=== PATIENT | male | born 1980 | race Caucasian/White ===

== ENCOUNTER 2022-10-09 11:36 | Emergency (ER) | payer MEDICAID ==
[~2022-10-09] VITALS: Ht 193 cm; Wt 93.0 kg
[2022-10-09 11:53] VITALS: BP_SYST 134
--- NOTE | 2022-10-09 12:09 | NUR ---
Patient triaged and placed in waiting room. VSS and patient appears in no acute distress at this time. Accompanied by STAFF, awaiting available bed, and DR. CHRISTA GALLAGHER notified of need for MSE.
--- NOTE | 2022-10-09 12:57 | NUR ---
Pt bib self from home. CC Back and neck pain. Pt is aaox3, bilateral hand grasps, pt has unsteady gait and weakness. Pt is 5/10 in pain in the lateral position; 10/10 any other position. Pt states was at work and fell 6-8 feet from a ladder. Pt continued work day and went to sleep with stiffness, awoke with back and neck pain.
--- NOTE | 2022-10-09 13:30 | NUR ---
Pain medication effective for tolerable relief.
[2022-10-09] MEDS ORDERED: MORPHINE 4 MG INJ. 4 MG/ML VIAL IVP ONE ×2 (14:15→16:00)
--- NOTE | 2022-10-09 14:20 | NUR ---
ER at bedside examining patient.
--- NOTE | 2022-10-09 14:30 | NUR ---
Pt to xray via gail.
--- NOTE | 2022-10-09 15:19 | NUR ---
Pt is on right lateral side without complaint. Pt states as long as I dont move from this position I can tolerate the pain.
[2022-10-09] MEDS ORDERED: IBUP-1971 PO (15:50)
[2022-10-09] MEDS ORDERED: HYDR-3921 PO (15:50)
--- NOTE | 2022-10-09 16:35 | NUR ---
Patient given written and verbal discharge instructions and verbalizes understanding. ER MD discussed with patient the results and treatment provided. Patient in stable condition. ID arm band removed. IV catheter removed intact and dressing applied, no active bleeding. Rx of HYDROCODONE AND IBUPROFEN given. Patient educated on pain management and to follow up with PMD. Opportunity for questions provided and answered. Medication side effect fact sheet provided.
[2022-10-09 16:37] VITALS: BP_SYST 134
== END 2022-10-09 16:35 | disposition home or self-care (01) ==
LOC: SED 11:36
DX: S32.020A Wedge compression fracture of second lumbar vertebra, initial encounter for closed fracture (principal); Z79.899 Other long term (current) drug therapy; W11.XXXA Fall on and from ladder, initial encounter; Y93.89 Activity, other specified; Y92.89 Other specified places as the place of occurrence of the external cause; Y99.8 Other external cause status
CPT/HCPCS: 99284; 72125; 96374; 72128; 72131; 72192; 96376; 76376; J2270

== ENCOUNTER 2022-10-18 18:59 | Emergency (ER) | payer MEDICAID ==
[~2022-10-18] VITALS: Ht 193 cm; Wt 93.0 kg
[~2022-10-18 18:59] MED LIST: HYDR-3921 PO; IBUP-1971 PO
[2022-10-18 19:10] VITALS: BP_SYST 125
[2022-10-18] MEDS ORDERED: MORPHINE 4 MG INJ. 4 MG/ML VIAL IM ONE (22:15)
[2022-10-18] MEDS ORDERED: KETOROLAC TROMETHAMINE 60 MG/2 ML VIAL IM ONE (22:15)
--- NOTE | 2022-10-18 22:18 | NUR ---
MD Mathur at bedside examining pt.
--- NOTE | 2022-10-18 22:25 | NUR ---
Pt taken to CT for imaging via w/c.
--- NOTE | 2022-10-18 23:04 | NUR ---
Patient back from CT accompanied by radiology.
--- NOTE | 2022-10-18 23:05 | NUR ---
Received report from RASHEEDA Liu; assuming care of patient at this time.
[2022-10-19] MEDS ORDERED: MORPHINE 4 MG INJ. 4 MG/ML VIAL IM ONE (00:30)
[2022-10-19 01:20] VITALS: BP_SYST 125
--- NOTE | 2022-10-19 01:20 | NUR ---
Patient resting comfortably in bed with side rails raised and safety precautions in place. Nad noted at this time.
--- NOTE | 2022-10-19 01:20 | NUR ---
Patient given written and verbal discharge instructions and verbalizes understanding. ER MD discussed with patient the results and treatment provided. Patient in stable condition. ID arm band removed. Patient educated on pain management and to follow up with PMD. Pain Scale 3/10. Opportunity for questions provided and answered. Patient A/Ox4, VSS, ambulatory, resp even and unlabored and in stable condition upon discharge.
== END 2022-10-19 01:20 | disposition home or self-care (01) ==
LOC: SED 18:59
DX: S33.5XXA Sprain of ligaments of lumbar spine, initial encounter (principal); Z79.899 Other long term (current) drug therapy; W18.2XXA Fall in (into) shower or empty bathtub, initial encounter; Y93.89 Activity, other specified; Y92.89 Other specified places as the place of occurrence of the external cause; Y99.8 Other external cause status
CPT/HCPCS: 99284; 72131; 76376; 96372 ×2; J1885; J2270 ×2

== ENCOUNTER 2023-01-11 12:35 | Emergency (ER) | payer OTHER, MEDICAID ==
[~2023-01-11] VITALS: Ht 193 cm; Wt 90.7 kg
[2023-01-11 12:35] VITALS: BP_SYST 145
--- NOTE | 2023-01-11 12:35 | NUR ---
BROUGHT BACK TO BED #4 AND TRIAGED. REPORT GIVEN TO REED
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
--- NOTE | 2023-01-11 12:50 | NUR ---
# 20 gauge angiocath placed to RAC. Use of asceptic technique. Opsite placed over site. Blood return noted. Flushed with 10 cc of normal saline. No evidence of infiltration noted. Patient tolerated well.
--- NOTE | 2023-01-11 13:03 | NUR ---
DR. BRITT AT BEDSIDE TO ASSESS PT.
[2023-01-11] MEDS ORDERED: MORPHINE 4 MG INJ. 4 MG/ML VIAL IVP ONE (13:30)
--- NOTE | 2023-01-11 13:34 | NUR ---
PT TAKEN TO CT SCAN AT THIS TIME.
--- NOTE | 2023-01-11 14:02 | NUR ---
DR. GILMAN STATED HE WILL ADD PT'S ADMISSION ORDERS. Addendum: 01/11/23 at 1403 by [email or web address] CHARTING IS ON WRONG PT.
--- NOTE | 2023-01-11 14:02 | NUR ---
DR. GILMAN AT BEDSIDE TO ASSESS PT.
[2023-01-11] MEDS ORDERED: IBUP-1971 PO (15:15)
[2023-01-11] MEDS ORDERED: HYDR-3917 PO (15:15)
[2023-01-11 15:26] VITALS: BP_SYST 145
--- NOTE | 2023-01-11 15:28 | NUR ---
Patient given written and verbal discharge instructions and verbalizes understanding. ER MD discussed with patient the results and treatment provided. Patient in stable condition. ID arm band removed. IV catheter removed intact and dressing applied, no active bleeding. Rx of NORCO AND MOTRIN given. Patient educated on pain management and to follow up with PMD. Pain Scale 0/10 Opportunity for questions provided and answered. Medication side effect fact sheet provided.
== END 2023-01-11 15:28 | disposition home or self-care (01) ==
LOC: SED 12:35
DX: S13.4XXA Sprain of ligaments of cervical spine, initial encounter (principal); S20.212A Contusion of left front wall of thorax, initial encounter; S09.90XA Unspecified injury of head, initial encounter; Z79.899 Other long term (current) drug therapy; V86.56XA Driver of dirt bike or motor/cross bike injured in nontraffic accident, initial encounter; Y93.89 Activity, other specified; Y92.89 Other specified places as the place of occurrence of the external cause; Y99.8 Other external cause status
CPT/HCPCS: 99285; 70450; 96374; 71250; 72125; 76376; J2270

== ENCOUNTER 2023-02-05 12:10 | Emergency (ER) | payer MEDICAID ==
[~2023-02-05] VITALS: Ht 193 cm; Wt 90.7 kg
[~2023-02-05 12:10] MED LIST changes: +HYDR-3917 PO
[2023-02-05] MEDS ORDERED: SODIUM PHOSPHATE,MONO-DIBASIC 133 ML ENEMA RC ONE (13:45)
[2023-02-05] MEDS ORDERED: POLY119P2 PO (14:01)
[2023-02-05] MEDS ORDERED: DOCU-144 PO (14:01)
[2023-02-05 14:10] VITALS: BP_SYST 130
== END 2023-02-05 14:08 | disposition home or self-care (01) ==
LOC: SED 12:10
DX: K59.00 Constipation, unspecified (principal); R10.30 Lower abdominal pain, unspecified; K62.89 Other specified diseases of anus and rectum; Z79.899 Other long term (current) drug therapy
CPT/HCPCS: 74018; 99283

== ENCOUNTER 2023-11-03 10:21 | Emergency (ER) | payer MEDICAID ==
[~2023-11-03] VITALS: Ht 193 cm; Wt 88.5 kg
[~2023-11-03 10:21] MED LIST changes: +DOCU-144 PO; +POLY119P2 PO
[2023-11-03 10:25] VITALS: BP_SYST 123; PULSE 93; RESP 18; TEMP 98.5; O2SAT 93
[2023-11-03 14:26] LABS: BASOPHILS % (AUTO) 0.3 % (0.0-2.0); EOSINOPHILS # (AUTO) 0.1 K/uL (0.0-0.4); EOSINOPHILS % (AUTO) 0.8 % (0.0-4.0); HEMATOCRIT 44.4 % (36-54); HEMOGLOBIN 15.4 g/dL (14.0-18.0); LYMPHOCYTES # (AUTO) 1.2 K/uL (1.0-5.5); MEAN CORPUSCULAR HEMOGLOBIN 31 pg (27-31); MEAN CORPUSCULAR HGB CONC 35 % (32-36); MEAN CORPUSCULAR VOLUME 89 fL (79.0-98.0); MONOCYTES # (AUTO) 0.7 K/uL (0.0-1.0); MONOCYTES % (AUTO) 8.3 % (1.7-9.3); NEUTROPHILS # (AUTO) 6.3 K/uL (1.8-7.7); NEUTROPHILS % (AUTO) 75.6 % (40.0-70.0); PLATELET COUNT (AUTO) 234 K/uL (130-430); RED BLOOD CELL COUNT(AUTO) 4.99 MIL/uL (4.2-6.2); RED CELL DISTRIBUTION WIDTH 13.5 % (9.0-15.0); WHITE BLOOD COUNT (AUTO) 8.3 K/uL (4.8-10.8)
[2023-11-03 14:53] LABS: ANION GAP 7 (5-15); CALCIUM 9.8 mg/dL (8.4-11.0); CARBON DIOXIDE 29 mmol/L (23-29); CHLORIDE 102 mmol/L (98-107); GFR AFRICAN AMERICAN 104 mL/min (>90); GLUCOSE 95 mg/dL (74-106); POTASSIUM 3.8 mmol/L (3.5-5.1); SODIUM SERUM 138 mmol/L (136-145); UREA NITROGEN, BLOOD 10 mg/dL (8-21)
[2023-11-03 14:56] LABS: GFR NON AFRICAN-AMERICAN 86 mL/min (>90)
[2023-11-03] MEDS ORDERED: KETOROLAC TROMETHAMINE 60 MG/2 ML VIAL IM ONE (15:00)
[2023-11-03] MEDS ORDERED: IBUP-1971 PO (15:38)
[2023-11-03] MEDS ORDERED: TRAM50TA2 PO (15:38)
== END 2023-11-03 15:49 | disposition home or self-care (01) ==
LOC: SED 10:21
DX: R07.81 Pleurodynia (principal); Z79.899 Other long term (current) drug therapy
CPT/HCPCS: 99285; 71045; 80048; 85025; 84484; 36415; 93005; 96372; J1885

== ENCOUNTER 2024-03-09 16:34 | Emergency (ER) | payer MEDICAID ==
[~2024-03-09] VITALS: Ht 193 cm; Wt 90.7 kg
[~2024-03-09 16:34] MED LIST changes: +TRAM50TA2 PO
[2024-03-09 16:42] VITALS: BP_SYST 151; PULSE 96; RESP 18; TEMP 98.3; O2SAT 98
[2024-03-09 16:58] LABS: BASOPHILS % (AUTO) 0.6 % (0.0-2.0); EOSINOPHILS # (AUTO) 0.1 K/uL (0.0-0.4); EOSINOPHILS % (AUTO) 1.6 % (0.0-4.0); HEMATOCRIT 48.1 % (36-54); HEMOGLOBIN 16.2 g/dL (14.0-18.0); LYMPHOCYTES # (AUTO) 1.4 K/uL (1.0-5.5); LYMPHOCYTES % (AUTO) 17.6 % (20.5-51.5); MEAN CORPUSCULAR HEMOGLOBIN 29 pg (27-31); MEAN CORPUSCULAR HGB CONC 34 % (32-36); MEAN CORPUSCULAR VOLUME 86 fL (79.0-98.0); MONOCYTES # (AUTO) 0.7 K/uL (0.0-1.0); MONOCYTES % (AUTO) 8.8 % (1.7-9.3); NEUTROPHILS # (AUTO) 5.7 K/uL (1.8-7.7); NEUTROPHILS % (AUTO) 71.4 % (40.0-70.0); PLATELET COUNT (AUTO) 235 K/uL (130-430); RED BLOOD CELL COUNT(AUTO) 5.56 MIL/uL (4.2-6.2); RED CELL DISTRIBUTION WIDTH 14.3 % (9.0-15.0)
[2024-03-09] MEDS: IBUPROFEN 800 MG TABLET PO ONE (17:07)
[2024-03-09] MEDS: HYDROcodone/ACETAMIN 10-325 MG TAB PO ONE (17:08)
[2024-03-09 17:20] LABS: INR 1.1 (0.80-1.20)
[2024-03-09 17:24] LABS: ALANINE AMINOTRANSFERASE 37 U/L (12-78); ALBUMIN 3.5 g/dL (3.4-4.8); ANION GAP 9 (5-15); ASPARTATE AMINOTRANSFERASE 28 U/L (10-37); CALCIUM 8.5 mg/dL (8.4-11.0); CARBON DIOXIDE 26 mmol/L (23-29); CHLORIDE 105 mmol/L (98-107); CREATININE 1.62 mg/dL (0.55-1.30); GFR AFRICAN AMERICAN 60 mL/min (>90); GLUCOSE 101 mg/dL (74-106); POTASSIUM 4.3 mmol/L (3.5-5.1); SODIUM SERUM 140 mmol/L (136-145); TOTAL BILIRUBIN 0.3 mg/dL (0.0-1.0); TOTAL PROTEIN, SERUM 6.9 g/dL (6.4-8.3); UREA NITROGEN, BLOOD 18 mg/dL (8-21)
[2024-03-09 17:27] LABS: ALCOHOL, BLOOD < 3 mg/dL (<10); BILIRUBIN,DIRECT 0.1 mg/dL (0.0-0.3); CREATINE KINASE, TOTAL 373 U/L (39-308); GFR NON AFRICAN-AMERICAN 49 mL/min (>90)
[2024-03-09 17:57] LABS: CKMB RELATIVE INDEX 0.1 (0.0-2.9); CREATINE KINASE MB 0.3 ng/mL (0-3.6)
[2024-03-09] MEDS ORDERED: AUG875 PO (18:24)
[2024-03-09] MEDS ORDERED: HYDR-3917 PO (18:36)
[2024-03-09 18:44] VITALS: BP_SYST 127; PULSE 86; RESP 16; TEMP 98.3; O2SAT 95
== END 2024-03-09 18:41 | disposition home or self-care (01) ==
LOC: SED 16:34
DX: S09.90XA Unspecified injury of head, initial encounter (principal); J32.9 Chronic sinusitis, unspecified; Z79.899 Other long term (current) drug therapy; V86.95XA Unspecified occupant of 3- or 4- wheeled all-terrain vehicle (ATV) injured in nontraffic accident, initial encounter; Y93.89 Activity, other specified; Y92.89 Other specified places as the place of occurrence of the external cause; Y99.8 Other external cause status
CPT/HCPCS: 99285; 70450; 71045; 80076; 80048; 82550; 82553; 85025; 85610; 85730; 84484; 36415; 93005; 83605; G0482